=== PATIENT | female | born 1945 | race Caucasian/White ===

== ENCOUNTER → 2024-03-03 12:15 | Outpatient (REF) | payer MEDICARE, OTHER, SELFPAY ==
[2024-03-03 13:58] LABS: ALT (SGPT) 21 U/L (0-35); AST (SGOT) 32 U/L (14-36); Albumin 4.3 g/dl (3.5-5.0); Alkaline Phosphatase 106 U/L (38-126); Blood Urea Nitrogen 26 mg/dl (7-17); Calcium 9.9 mg/dl (8.4-10.2); Carbon Dioxide 33 mmol/L (22-30); Chloride 99 mmol/L (98-107); Glucose 136 mg/dl (70-99); HDL Cholesterol 48 mg/dl; LDL Cholesterol, Calculated 46 mg/dl; Magnesium 2.2 mg/dl (1.6-2.3); Phosphorus 3.2 mg/dl (2.5-4.5); Sodium 143 mmol/L (135-145); Total Cholesterol 146 mg/dl (50-199); Total Protein 6.8 g/dl (6.3-8.2); Triglyceride 263 mg/dl (10-149); Very Low Density Lipoprotein 52 mg/dl (0-30); eGFR 30.32
[2024-03-03 14:18] LABS: Glycohemoglobin (HgbA1c) 8.9 % (4.0-5.6)
[2024-03-03 14:22] LABS: Microalbumin, Random Urine 6.6 mg/dl (0.6-1.7); Microalbumin/creatinine Ratio 129.4 mg/g
== END ==
LOC: REG 12:15
PROVIDERS: ATTENDING PHYSICIAN Internal Medicine Cardiovascular Disease; FAMILY PHYSICIAN Student in an Organized Health Care Education/Training Program; OTHER PHYSICIAN Internal Medicine Endocrinology, Diabetes & Metabolism; REFERRING PHYSICIAN Specialist
DX: N18.4 Chronic kidney disease, stage 4 (severe) (principal); I50.32 Chronic diastolic (congestive) heart failure; I10 Essential (primary) hypertension; E78.00 Pure hypercholesterolemia, unspecified; I25.10 Atherosclerotic heart disease of native coronary artery without angina pectoris; E11.21 Type 2 diabetes mellitus with diabetic nephropathy
CPT/HCPCS: 36415; 80053; 80061; 82043; 82570; 83036; 83735; 83970; 84100

== ENCOUNTER → 2024-03-17 14:26 | Outpatient (REF) | payer MEDICARE, OTHER, SELFPAY | LOC: RCS 14:26 | PROVIDERS: ATTENDING PHYSICIAN Internal Medicine Cardiovascular Disease; FAMILY PHYSICIAN Student in an Organized Health Care Education/Training Program | DX: I50.32 Chronic diastolic (congestive) heart failure (principal); I48.4 Atypical atrial flutter; I25.10 Atherosclerotic heart disease of native coronary artery without angina pectoris; I34.0 Nonrheumatic mitral (valve) insufficiency; I48.21 Permanent atrial fibrillation; Z98.890 Other specified postprocedural states | CPT/HCPCS: 93306 ==

== ENCOUNTER → 2024-07-19 09:03 | Outpatient (REF) | payer MEDICARE, OTHER, SELFPAY | LOC: WDC 09:03 | PROVIDERS: ATTENDING PHYSICIAN Family Medicine | DX: N63.20 Unspecified lump in the left breast, unspecified quadrant (principal); N63.42 Unspecified lump in left breast, subareolar | CPT/HCPCS: 76642; 77062; 77066 ==

== ENCOUNTER → 2024-07-27 10:28 | Outpatient (REF) | payer MEDICARE, OTHER, SELFPAY ==
--- NOTE | 2024-07-27 14:58 | OID.BR.INTR ---
[facility] Breast Navigator - Initial
- -
Date of Contact: 07/27/24
Met with patient. Patient given written information on navigator services available at [facility]. Will follow up as needed per protocol.
== END ==
LOC: WDC 10:28
PROVIDERS: ATTENDING PHYSICIAN Family Medicine
DX: N63.21 Unspecified lump in the left breast, upper outer quadrant (principal); N63.32 Unspecified lump in axillary tail of the left breast
CPT/HCPCS: 88305; 19083; 19084; 88341; 88342; 88360; A4648

== ENCOUNTER → 2024-10-05 13:11 | Outpatient (REF) | payer MEDICARE, OTHER, SELFPAY | LOC: RAD 13:11 | PROVIDERS: ATTENDING PHYSICIAN Internal Medicine Hematology & Oncology; FAMILY PHYSICIAN Family Medicine | DX: C50.112 Malignant neoplasm of central portion of left female breast (principal); Z78.0 Asymptomatic menopausal state; M81.0 Age-related osteoporosis without current pathological fracture | CPT/HCPCS: 77080 ==